=== PATIENT | female | born 1970 | race Caucasian/White ===

== ENCOUNTER 2023-07-31 07:35 | Day surgery (SDC) | payer MEDICAID ==
[~2023-07-31] VITALS: Ht 160 cm; Wt 78.9 kg
[2023-07-31 08:44] LABS: HCG,QUAL RESULT NEGATIVE (NEGATIVE)
[2023-07-31] MEDS ORDERED: MIDAZOLAM HCL 5 MG/5 ML VIAL ONE (08:52)
[2023-07-31] MEDS ORDERED: MEPERIDINE 100 MG INJ. 100 MG/ML VIAL ONE (08:52)
[2023-07-31 12:49] VITALS: BP_SYST 139; PULSE 71; RESP 18; TEMP 98.3; O2SAT 98
== END 2023-07-31 14:20 | disposition home or self-care (01) ==
LOC: SDS 07:35
PROVIDERS: ATTEND Internal Medicine Gastroenterology
DX: R10.9 Unspecified abdominal pain (principal); K29.50 Unspecified chronic gastritis without bleeding; K31.A0 Gastric intestinal metaplasia, unspecified; K25.9 Gastric ulcer, unspecified as acute or chronic, without hemorrhage or perforation; E78.5 Hyperlipidemia, unspecified; J45.909 Unspecified asthma, uncomplicated; Z79.899 Other long term (current) drug therapy
CPT/HCPCS: 43239; 99152; 87081; 84703; 36415; 88305; 88312; 88313; G0378; J2250; J2175